=== PATIENT | female | born 1955 | race Caucasian/White ===

== ENCOUNTER 2020-01-28 16:10 | Emergency (ER) | payer MEDICARE, MEDICAID ==
[~2020-01-28] VITALS: Ht 152.4 cm; Wt 78.0 kg
[2020-01-28] MEDS ORDERED: KETOROLAC 30MG/ML VIAL IM ONE (17:30)
[2020-01-28] MEDS ORDERED: ACYCLOVIR 400 MG TABLET PO ONE (17:30)
[2020-01-28 17:55] VITALS: BP 124/82
== END 2020-01-28 17:51 | disposition home or self-care (01) ==
LOC: ER 16:10
DX: B02.9 Zoster without complications (principal); Z90.710 Acquired absence of both cervix and uterus
CPT/HCPCS: 96372; 99283; J1885